=== PATIENT | male | born 1970 | race Caucasian/White ===

== ENCOUNTER 2022-05-15 08:02 | Emergency (ER) | payer BC ==
[~2022-05-15] VITALS: Ht 175.3 cm; Wt 81.6 kg
== END 2022-05-15 08:39 | disposition home or self-care (01) ==
LOC: ER 08:08
DX: Z71.1 Person with feared health complaint in whom no diagnosis is made (principal); R10.30 Lower abdominal pain, unspecified; N50.89 Other specified disorders of the male genital organs
CPT/HCPCS: 99282

== ENCOUNTER → 2023-01-04 | Day surgery (SDC) | payer BC ==
[~2023-01-04] MED LIST: CIALIS5 MG PO; CRESTOR10 MG PO; FENTANYL CITRATE/PF 100MCG/2 ML INJ ONE; LACTATED RINGER'S 1,000 ML ONE; LIDOCAINE HCL 2% LOCAL INJ 5 ML SDV VIAL INJ ONE; METOPROLOL TART25 MG PO; PROPOFOL IV EMULSION 10 MG/ML 20 ML VIAL ONE
[2023-01-04 11:53] VITALS: TEMP 97.6
[2023-01-04 12:20] VITALS: BP 145/80; PULSE 60; RESP 16; O2SAT 99
== END | disposition home or self-care (01) ==
LOC: OR 08:40
PROVIDERS: ATTEND Internal Medicine Gastroenterology
DX: K21.00 Gastro-esophageal reflux disease with esophagitis, without bleeding (principal); K22.10 Ulcer of esophagus without bleeding; K29.50 Unspecified chronic gastritis without bleeding; K31.7 Polyp of stomach and duodenum; K31.89 Other diseases of stomach and duodenum; K92.1 Melena; R19.5 Other fecal abnormalities; I10 Essential (primary) hypertension; E78.00 Pure hypercholesterolemia, unspecified; Z71.3 Dietary counseling and surveillance; Z68.26 Body mass index [BMI] 26.0-26.9, adult; N52.9 Male erectile dysfunction, unspecified; R00.1 Bradycardia, unspecified; Z01.810 Encounter for preprocedural cardiovascular examination; Z86.16 Personal history of COVID-19; Z79.899 Other long term (current) drug therapy
CPT/HCPCS: 43239; 93005; C9113; J2001; J2704; J3010; J7121